=== PATIENT | male | born 1960 | race Caucasian/White ===

== ENCOUNTER 2016-12-29 22:00 | Emergency (ER) | payer SELFPAY ==
[~2016-12-29] VITALS: Ht 177.8 cm; Wt 86.2 kg
[2016-12-29] MEDS ORDERED: FUROSEMIDE 20 MG/2 ML VIAL ONE (22:04)
[2016-12-29] MEDS ORDERED: FUROSEMIDE 20 MG/2 ML VIAL IV ONE (22:15)
[2016-12-29] MEDS ORDERED: ETOMIDATE (2MG/ML) 20ML VIAL IV ONE ×2 (22:19→22:45)
[2016-12-29] MEDS ORDERED: SUCCINYLCHOLINE CHLORIDE 20 MG/ML 10ML VIAL IV ONE ×2 (22:19→22:45)
[2016-12-29 22:20] LABS: Allen Test Yes; Base Excess -23.6 mmol/L (-2.0-2.0); Blood 02Sat 89.3 % (96-100); Blood COHb 0.1 % (0.5-1.5); Blood MetHb 0.5 % (0.0-1.5); HCO3 9.9 mmol/L (22-26.0); HHb 10.6 % (0.0-5.0); MODE MASK - NRB; O2Hb 88.8 % (94.0-97.0); PCO2 52.7 mmHg (35.0-45.0); PCO2(T) 52.7 mmHg (35.0-45.0); PO2 95.7 mmHg (80.0-100.0); PO2(T) 95.7 mmHg (80.0-100.0); Sample Type Arterial; pH 6.891 (7.350-7.450)
[2016-12-29] MEDS ORDERED: MIDAZOLAM DRIP 100 mg/100mL NS 100 ML IV SCH (22:25)
[2016-12-29] MEDS ORDERED: MIDAZOLAM DRIP 100 mg/100mL NS 100 ML IV ONE (22:25)
[2016-12-29 22:29] LABS: Basophils # (auto) 0.1 uL; Basophils % (auto) 0.6 % (0.0-2.0); CONDITION Y; DEFINITIVE SEE PRINTOUT; Eosinophils # (auto) 0.5 uL; Eosinophils % (auto) 2.8 % (0.0-7.0); Hematocrit 47.6 % (41.0-53.0); Hemoglobin 15.4 g/dL (13.5-17.5); Lymphocytes # (auto) 6.1 uL; Lymphocytes % (auto) 33.3 % (10.0-50.0); Mean Corpuscular Hgb Conc. 32.4 g/dL (32.0-36.0); Mean Platelet Volume 8.7 fL (7.4-10.4); Monocytes # (auto) 0.5 uL; Monocytes % (auto) 2.9 % (0.0-12.0); Neutrophils # (auto) 11.1 uL; Neutrophils % (auto) 60.4 % (37.0-80.0); Platelet Count (auto) 435 10^3/uL (140-450); Red Cell Distribution Width 16.8 % (11.6-16.0); White Blood Cell 18.3 10^3/uL (4.4-10.8)
[2016-12-29 22:38] LABS: INR 1.12 (0.9-1.15); Partial Thromboplastin Time 33.7 sec (22.64-33.71); Prothrombin Time 12.2 sec (9.37-12.3)
[2016-12-29 22:40] LABS: Albumin 3.4 g/dL (3.4-5.0); BUN/Creatinine Ratio 7.8; Calcium 8.6 mg/dL (8.5-10.1); Magnesium 2.6 mg/dL (1.6-2.6); Potassium 3.5 mmol/L (3.5-5.1)
[2016-12-29 22:47] LABS: B-Type Natriuretic Peptide 2537.84 pg/mL (0-100); Bilirubin, Total 0.4 mg/dL (0.2-1.0); Total Protein 7.8 g/dL (6.4-8.2)
[2016-12-29 22:51] LABS: Temperature: 23.1 C (20.0-25.0)
[2016-12-29] MEDS ORDERED: DOPamine 1600MCG/ML 250 ML IV SCH (22:55)
[2016-12-29] MEDS ORDERED: IPRATROPIUM BROM 0.5 MG/2.5ML INH SOL ONE (23:00)
[2016-12-29] MEDS ORDERED: ALBUTEROL SULF 2.5 MG/0.5ML(0.5%) NEB SOLN ONE (23:00)
[2016-12-29] MEDS ORDERED: SODIUM CHLORIDE 0.9% 1,000 ML IV ONE ×2 (23:00)
[2016-12-29] MEDS ORDERED: SODIUM BICARBONATE 50ML VIAL 100 ML in SODIUM CHL 0.9% 1,000 ML IV ONE (23:15)
[2016-12-29] MEDS ORDERED: LEVOFLOXACIN 750MG 150 ML IV ONE (23:15)
[2016-12-29] MEDS ORDERED: SODIUM BICARBONATE 8.4 % INJ 50ML VIAL IV ONE ×2 (23:27→23:40)
[2016-12-29 23:35] LABS: Lactic Acid w/Reflex 14.6 mmol/L (0.4-2.0)
[2016-12-29] MEDS ORDERED: cefTRIAXone 1GM/50ML D5W 50 ML IV ONE (23:45)
[2016-12-29] MEDS ORDERED: PROPOFOL 100 ML IV ONE (23:59)
[2016-12-30] MEDS ORDERED: IOHEXOL 350 MG/ML 100ML IJ ONE (00:10)
[2016-12-30 00:17] LABS: REFLEX LACTIC ACID YES OR NO YES
[2016-12-30 01:21] LABS: Allen Test Modified; Base Excess -2.3 mmol/L (-2.0-2.0); Blood 02Sat 95.1 % (96-100); Blood COHb 0.4 % (0.5-1.5); Blood MetHb 0.4 % (0.0-1.5); HCO3 24.2 mmol/L (22-26.0); HHb 4.9 % (0.0-5.0); MODE VENT - A/C; O2Hb 94.3 % (94.0-97.0); PCO2 48.3 mmHg (35.0-45.0); PCO2(T) 48.3 mmHg (35.0-45.0); PO2 90.7 mmHg (80.0-100.0); PO2(T) 90.7 mmHg (80.0-100.0); Sample Type Arterial; pH 7.318 (7.350-7.450)
[2016-12-30] MEDS ORDERED: PANTOPRAZOLE SODIUM 80 MG in SODIUM CHL 0.9% 60 ML IV ONE (03:00)
[2016-12-30] MEDS ORDERED: PANTOPRAZOLE SODIUM 40 MG/10 ML VIAL IV ONE (03:16)
[2016-12-30] MEDS ORDERED: POTASSIUM CHL 20MEQ/100ML 200 ML IV ONE (04:52)
[2016-12-30 05:00] VITALS: BP 129/60
[2016-12-30] MEDS ORDERED: PROPOFOL 100 ML IV SCH ×2 (05:03)
[2016-12-30] MEDS ORDERED: NOREPINEPHRINE BITARTRATE 250 ML IV ONE (05:19)
== END 2016-12-30 05:43 | disposition short-term general hospital (02) ==
LOC: ER 22:13
DX: I46.9 Cardiac arrest, cause unspecified (principal); R07.9 Chest pain, unspecified; D72.829 Elevated white blood cell count, unspecified; R79.89 Other specified abnormal findings of blood chemistry; I35.0 Nonrheumatic aortic (valve) stenosis; I71.2 Thoracic aortic aneurysm, without rupture; I48.91 Unspecified atrial fibrillation; R42 Dizziness and giddiness; F17.210 Nicotine dependence, cigarettes, uncomplicated; J18.8 Other pneumonia, unspecified organism
CPT/HCPCS: 31500; 36415; 36600; 51702; 71010; 71275; 80053; 80307; 82805; 82962; 83605; 83735; 83880; 84484; 85025; 85379; 85610; 85730; 87040; 87070; 87205; 92950; 93005; 94002; 94644; 96365; 96366; 96367; 96375; 99291; C9113; J0330; J1940; J1956; J2704; J3480; J7030; Q9967; A4565